=== PATIENT | female | born 1985 | race Caucasian/White ===

== ENCOUNTER 2018-05-08 05:20 | Inpatient (IN) | payer MEDICAID ==
[2018-05-08] MEDS: LACTATED RINGER'S 1,000 ML IV ×2 (05:51→07:41)
[2018-05-08] MEDS ORDERED: OXYTOCIN 30 UNITS/LR 500 ML IV ×4 (06:00→11:30)
[2018-05-08] MEDS ORDERED: LIDOCAINE 1% (MPF) 30 ML INJ INJ (06:00)
[2018-05-08] MEDS ORDERED: MISOPROSTOL 200 MCG TAB PR ×2 (06:00→11:30)
[2018-05-08] MEDS ORDERED: CARBOPROST 250 MCG INJ IM ×2 (06:00→11:30)
[2018-05-08] MEDS ORDERED: METHYLERGONOVINE 0.2 MG INJ IM ×2 (06:00→11:30)
[2018-05-08 06:25] LABS: ADD MAN DIFF? NO
[2018-05-08 06:28] LABS: WHITE BLOOD COUNT 6.4 10^3/ul (4.8-10.8)
[2018-05-08 06:28] LABS: BASOPHILS % 0.5 % (0.0-2.0); EOSINOPHILS % 0.6 % (0.0-7.0); HEMATOCRIT 36.9 % (37.0-47.0); HEMOGLOBIN 12.5 g/dl (12.0-16.0); LYMPHOCYTES # 1.9 10^3/ul (0.8-2.9); LYMPHOCYTES % 29.7 % (15.0-51.0); MEAN CORPUSCULAR HEMOGLOBIN 29.9 pg (29.0-33.0); MEAN CORPUSCULAR HGB CONC 33.9 g/dl (32.0-37.0); MEAN CORPUSCULAR VOLUME 88.3 fl (82.0-101.0); MEAN PLATELET VOLUME 11.1 fl (7.4-10.4); MONOCYTE # 0.5 10^3/ul (0.3-0.9); MONOCYTES % 7.4 % (0.0-11.0); NEUTROPHIL # 3.8 10^3/ul (1.6-7.5); NEUTROPHILS % 59.9 % (39.0-77.0); PLATELET COUNT 211 10^3/UL (140-415); RED BLOOD COUNT 4.18 10^6/ul (4.20-5.40); RED CELL DISTRIBUTION WIDTH 14.4 % (11.5-14.5)
[2018-05-08 06:46] LABS: INR 0.81; PROTIME 11.3 Sec (11.9-14.9); PT RATIO 0.9
[2018-05-08 06:47] LABS: PARTIAL THROMBOPLASTIN TIME 31.9 Sec (23.0-35.0)
[2018-05-08] MEDS ORDERED: OXYTOCIN 30 UNITS/LR 500 ML BAG IV (07:00)
[2018-05-08] MEDS ORDERED: morphine SULFATE/PF (10 MG/10 ML) INJ (08:04)
[2018-05-08] MEDS ORDERED: OXYTOCIN 10 UNIT INJ (08:04)
[2018-05-08] MEDS ORDERED: ONDANSETRON 4 MG INJ (08:04)
[2018-05-08 08:05] LABS: HEPATITIS B SURFACE ANTIGEN NEGATIVE (NEGATIVE)
[2018-05-08] MEDS ORDERED: METOCLOPRAMIDE 10 MG INJ (09:01)
[2018-05-08] MEDS: OXYTOCIN 30 UNITS/LR 500 ML IV ×2 (09:51→15:17)
[2018-05-08] MEDS ORDERED: NALOXONE (0.4 MG/ML) INJ IV (10:00)
[2018-05-08] MEDS ORDERED: ONDANSETRON 4 MG INJ IV (10:00)
[2018-05-08] MEDS ORDERED: morphine 2 MG INJ IV (10:00)
[2018-05-08] MEDS ORDERED: DIPHENHYDRAMINE 50 MG INJ IV (10:00)
[2018-05-08] MEDS: CEFAZOLIN 2 GM/50 ML (PMX) 50 ML IVPB (11:20)
[2018-05-08] MEDS ORDERED: METHYLERGONOVINE 0.2 MG TAB PO (11:30)
[2018-05-08] MEDS ORDERED: LANOLIN HPA 1 PKT TOP (11:30)
[2018-05-08] MEDS: DEXTROSE 5%-LR 1,000 ML IV (12:00)
[2018-05-08] MEDS ORDERED: IBUPROFEN 800 MG TAB PO (14:00)
[2018-05-08 15:16] LABS: RAPID PLASMA REAGIN NONREACTIVE (NR)
[2018-05-08] MEDS: SENNA/DOCUSATE NA (8.6MG/50MG) TAB PO (20:43)
[2018-05-08] MEDS: KETOROLAC 30 MG INJ IV (21:46)
[2018-05-09] MEDS: DEXTROSE 5%-LR 1,000 ML IV ×3 (01:05→11:27)
[2018-05-09] MEDS: KETOROLAC 30 MG INJ IV (03:57)
[2018-05-09 07:52] LABS: ADD MAN DIFF? NO
[2018-05-09 07:57] LABS: BASOPHILS % 0.2 % (0.0-2.0); EOSINOPHILS % 0.3 % (0.0-7.0); HEMATOCRIT 29.5 % (37.0-47.0); LYMPHOCYTES # 1.3 10^3/ul (0.8-2.9); LYMPHOCYTES % 15.1 % (15.0-51.0); MEAN CORPUSCULAR HEMOGLOBIN 30.1 pg (29.0-33.0); MEAN CORPUSCULAR HGB CONC 33.9 g/dl (32.0-37.0); MEAN CORPUSCULAR VOLUME 88.9 fl (82.0-101.0); MEAN PLATELET VOLUME 10.9 fl (7.4-10.4); MONOCYTE # 0.5 10^3/ul (0.3-0.9); MONOCYTES % 5.5 % (0.0-11.0); NEUTROPHIL # 6.8 10^3/ul (1.6-7.5); NEUTROPHILS % 78.3 % (39.0-77.0); PLATELET COUNT 172 10^3/UL (140-415); RED BLOOD COUNT 3.32 10^6/ul (4.20-5.40); RED CELL DISTRIBUTION WIDTH 14.3 % (11.5-14.5)
[2018-05-09 07:57] LABS: WHITE BLOOD COUNT 8.7 10^3/ul (4.8-10.8)
[2018-05-09] MEDS: SENNA/DOCUSATE NA (8.6MG/50MG) TAB PO ×2 (09:50→21:44)
[2018-05-09] MEDS ORDERED: HYDROCODONE/APAP (5/325) TAB NGT (11:00)
[2018-05-09] MEDS: DIPHTH/TET/ACEL PERTUSS (ADULT) 0.5 ML VIAL IM* (11:00)
[2018-05-09] MEDS: HYDROCODONE/APAP (5/325) TAB GTB ×2 (13:42→21:44)
[2018-05-09] MEDS: IBUPROFEN 800 MG TAB PO ×2 (15:07→21:44)
[2018-05-10] MEDS: HYDROCODONE/APAP (5/325) TAB GTB ×3 (05:34→21:43)
[2018-05-10] MEDS: IBUPROFEN 800 MG TAB PO ×3 (05:34→21:43)
[2018-05-10] MEDS: SENNA/DOCUSATE NA (8.6MG/50MG) TAB PO ×2 (10:48→21:42)
[2018-05-10] MEDS ORDERED: IBUPROFEN 800 MG TAB PO (14:00)
[2018-05-11] MEDS: IBUPROFEN 800 MG TAB PO ×2 (05:47→13:37)
[2018-05-11] MEDS: HYDROCODONE/APAP (5/325) TAB GTB ×2 (05:47→13:37)
[2018-05-11] MEDS ORDERED: DIPHTH/TET/ACEL PERTUSS (ADULT) 0.5 ML VIAL IM* (09:00)
[2018-05-11] MEDS: SENNA/DOCUSATE NA (8.6MG/50MG) TAB PO (09:00)
[2018-05-11] MEDS: MEASLES,MUMPS,RUBELLA VACCINE INJ SC* (09:00)
== END 2018-05-11 15:26 | disposition home or self-care (01) | DRG 788 ==
LOC: L-D 05:20 → PP1 11:55
PROVIDERS: Obstetrics & Gynecology
PROC: 10D00Z1 Extraction of Products of Conception, Low, Open Approach (ICD-10-PCS; principal; 2018-05-08 07:30)
DX: O32.8XX0 Maternal care for other malpresentation of fetus, not applicable or unspecified (principal); O34.13 Maternal care for benign tumor of corpus uteri, third trimester; D25.1 Intramural leiomyoma of uterus; Z3A.39 39 weeks gestation of pregnancy; Z37.0 Single live birth
CPT/HCPCS: 76815; 85025; 85610; 85730; 86592; 86850; 86900; 86901; 86920; 87340; 90715; 99464